=== PATIENT | female | born 1960 | race Two or more races ===

== ENCOUNTER 2023-09-23 14:18 | Emergency (ER) | payer OTHER ==
[~2023-09-23] VITALS: Ht 152.4 cm; Wt 72.6 kg
[~2023-09-23 14:18] MED LIST: AVELOX ABC PAC400 MG PO; DIOVAN320 MG PO; KLONOPIN0.5 MG/TAB PO; PAXIL40 MG PO; [UNRECOGNIZED DRUG - OTHER] PO
[2023-09-23] MEDS ORDERED: LOSARTAN POTASS25 MG PO (14:51)
[2023-09-23] MEDS ORDERED: NORVASC2.5 M1 PO (14:51)
== END 2023-09-23 19:34 ==
LOC: ER 14:18
DX: S00.33XA Contusion of nose, initial encounter (principal); W01.0XXA Fall on same level from slipping, tripping and stumbling without subsequent striking against object, initial encounter; Y93.9 Activity, unspecified; Y92.9 Unspecified place or not applicable; Y99.9 Unspecified external cause status

== ENCOUNTER 2024-04-06 15:50 | Emergency (ER) | payer OTHER ==
[~2024-04-06] VITALS: Ht 152.4 cm; Wt 65.8 kg
[~2024-04-06 15:50] MED LIST changes: +LOSARTAN POTASS25 MG PO; +NORVASC2.5 M1 PO
[2024-04-06] MEDS ORDERED: DEXAMETHASONE SODIUM PHOSPHATE 4 MG/ML VIAL IM STA (18:24)
[2024-04-06] MEDS ORDERED: ORPHENADRINE CITRATE 30 MG/ML AMPUL IM STA (18:24)
[2024-04-06 19:03] LABS: HEMATOCRIT 40.4 % (36.0-45.00); HEMOGLOBIN 13.8 g/dL (12.0-15.00); MEAN CELL VOLUME 88.2 fL (80.00-100.00); PLATELET COUNT 344 K/uL (150-450); RED BLOOD COUNT 4.59 M/uL (4.00-6.00); RED CELL DISTRIBUTION WIDTH 13.8 % (11.5-14.5)
[2024-04-06 19:20] LABS: INR 1.01; PROTHROMBIN TIME 10.6 SECONDS (9.0-11.5)
[2024-04-06 19:33] LABS: ALBUMIN 3.8 gm/dL (3.4-5.0); BILIRUBIN TOTAL 0.42 mg/dL (0.3-1.2); CALCIUM 9.7 mg/dL (8.5-10.1); CREATININE SERUM 0.58 mg/dL (0.55-1.02); GFR 104.66; GLOBULINA 4.2 G/DL (2.4-3.5)
[2024-04-06 19:38] LABS: POTASSIUM 2.79 mEq/L (3.5-5.1)
[2024-04-06] MEDS ORDERED: ZANAFLEX4 MG PO (20:46)
[2024-04-06] MEDS ORDERED: DICLOFENAC POTA50 MG PO (20:46)
== END 2024-04-06 20:53 | disposition home or self-care (01) ==
LOC: ER 15:51
PROVIDERS: General Practice
DX: M54.2 Cervicalgia (principal); R51.9 Headache, unspecified; I10 Essential (primary) hypertension
CPT/HCPCS: 36415; 70450; 96372; 99284; J1100; J2360